=== PATIENT | female | born 1960 ===

== ENCOUNTER → 2018-10-20 | Outpatient (CLI) | payer OTHER, MEDICAID ==
[~2018-10-20] MED LIST: IOHEXOL 100 ML; METOPROLOL 5 MG INJ; SOD CHLORIDE 0.9% 100 ML
[2018-10-20] MEDS: NITROGLYCERIN AEROSOL (4.9 GM) (09:40)
== END | disposition home or self-care (01) ==
LOC: C/S 08:37
DX: R94.39 Abnormal result of other cardiovascular function study (principal); R06.02 Shortness of breath
CPT/HCPCS: 75571; 75574